=== PATIENT | female | born 1960 | race Caucasian/White ===

== ENCOUNTER 2023-01-19 12:14 | Emergency (ER) | payer MEDICAID, OTHER ==
[2023-01-19] MEDS ORDERED: KETOROLAC 30 MG/ML VIAL IM STA (13:03)
--- NOTE | 2023-01-19 13:03 | ED Physician Documentation ---
PD HPI HEADACHE - Stated complaint Stated Complaint: HEAD/NECK PX - Chief complaint Chief Complaint: Neuro - History obtained from History obtained from: Patient - Additional information Additional information: 62-year-old female presents with right sided headache. Headache is severe, in fact the most severe headache she has had, though not thunderclap or sudden onset in nature, has been gradually progressing over the course of last week. She states it feels like its on her scalp but there is a hand squeezing the right posterior scalp. She had no injuries to the area, and it feels better when she grabs her hair and pulled on it. She has not noted some Occasional floaters in her vision over the course of the last week as well as an episode 2 nights ago where she had a bright light in the periphery of the left visual field. She states this happened 1 time and did not recur she had no associated eye pain. She states no history of headaches or migraines But states she has had somewhat similar pain in the past with sinus infections though has no sinus symptoms at this time. She does induce significant stress in attention at this time, she wonders if the pain is related to tension from her neck where she tends to carry it. She in general would like to just return to [place] where she is visiting from, and she is due to go back tomorrow, and would like to follow-up with her primary doctor, but states the pain just was not going away and her father was concerned about her therefore she came in here. She has tried Tylenol for the pain without relief, no other treatment. She has no confusion or alteration in mental status, no speech changes, no extremity weakness or numbness, no ataxia, no fever or chills, no neck stiffness. Review of Systems Constitutional: reports: Reviewed and negative Eyes: reports: Other (. See HPI.) Ears: reports: Reviewed and negative Nose: reports: Reviewed and negative Throat: reports: Reviewed and negative Cardiac: reports: Reviewed and negative Respiratory: reports: Reviewed and negative GI: reports: Reviewed and negative : reports: Reviewed and negative Skin: reports: Reviewed and negative Musculoskeletal: reports: Reviewed and negative Neurologic: reports: Headache. denies: Generalized weakness, Focal weakness, Numbness, Difficulty speaking, Near syncope, Syncope, Seizure, Confused, Altered mental status, Unresponsive, Head injury, LOC, Reviewed and negative, Other Psychiatric: reports: Reviewed and negative Endocrine: reports: Reviewed and negative PD PAST MEDICAL HISTORY - Past Medical History Past Medical History: No - Present Medications Home Medications: Ambulatory Orders Medication Instructions Recorded Confirmed Diazepam [Valium] 5 mg PO Q12H PRN #2 tablet 01/19/23 - Allergies Allergies/Adverse Reactions: Allergies Allergy/AdvReac Type Severity Reaction Status Date / Time No Known Drug Allergies Allergy Verified 01/19/23 12:18 PD ED PE NORMAL - Vitals Vital signs reviewed: Yes - General General: Alert and oriented X 3, No acute distress, Well developed/nourished - HEENT HEENT: Atraumatic, PERRL, EOMI, Ears normal, Moist mucous membranes, Pharynx benign - Neck Neck: Supple, no meningeal sign, No bony TTP, No adenopathy, No JVD, C-Spine cleared by NEXUS criteria - Cardiac Cardiac: RRR, No murmur - Respiratory Respiratory: No respiratory distress, Clear bilaterally - Abdomen Abdomen: Normal bowel sounds, Soft, Non tender, Non distended - Derm Derm: Normal color, Warm and dry, No rash - Neuro Neuro: Alert and oriented X 3, No motor deficit, No sensory deficit, Normal speech Eye Opening: Spontaneous Motor: Obeys Commands Verbal: Oriented GCS Score: 15 - Psych Psych: Normal mood, Normal affect Results - Vitals Vitals: Vital Signs - 24 hr 01/19/23 01/19/23 01/19/23 12:18 14:10 16:05 Temperature 36.8 C Heart Rate 90 72 63 Respiratory 16 15 16 Rate Blood Pressure 120/90 H 120/70 131/86 H O2 Saturation 98 99 100 01/19/23 17:33 Temperature Heart Rate 66 Respiratory 15 Rate Blood Pressure 120/80 O2 Saturation 99 Oxygen O2 Source Room air - Labs Labs: Laboratory Tests 01/19/23 01/19/23 16:02 16:02 WBC 5.2 RBC 4.46 Hgb 12.6 Hct 40.1 MCV 89.9 MCH 28.3 MCHC 31.4 L RDW 14.9 Plt Count 174 MPV 9.7 Neut # (Auto) 3.0 Lymph # (Auto) 1.7 [place] # (Auto) 0.4 Eos # (Auto) 0.1 Baso # (Auto) 0.0 Absolute Nucleated RBC 0.00 Nucleated RBC % 0.0 Sodium 135 Potassium 4.2 Chloride 104 Carbon Dioxide 28 Anion Gap 3.0 L BUN 19 Creatinine 0.7 Estimated GFR (MDRD) 85 L Glucose 88 Calcium 9.4 - Rads (name of study) No standard instances Relevant Findings:: Final report received PD Medical Decision Making - ED course Complexity details: reviewed results, re-evaluated patient, considered differential, d/w patient ED course: 62-year-old female presented with a severe right-sided headache as described in HPI. The patient is comfortable appearing on physical exam but her physical exam is otherwise completely normal, she has stable vital signs, completely normal neurologic exam, no reproducible tenderness to palpation in the head. Given the severity of her headache and her head lack of headache history, I did obtain a CT head which was negative. We initially offered the patient various different treatment modalities including IM injections of pain or nausea medication, IV, oral medication. The patient elected for IM medication therefore she was given Toradol but had absolutely no relief with that, she was subsequently given 1 mg of IM Dilaudid with mild relief but given her ongoing headache and the severity, was concern for possible aneurysm or other acute finding therefore we did proceed with a CTA which was also negative. The patient was subsequently given some diazepam for possible tension type issue and had complete resolution of her headache and left neck pain. It therefore suggests that this is likely a tension type headache likely related to muscle tightness and tension in the right trapezius. The patient plans to return to her home tomorrow in [place] and has requested a short course of muscle laxer as needed until she is able to get into see the PCP therefore I have prescribed her 5 mg of p.o. diazepam, total of 2 tablets. She was advised on the potential side effects of this medication and not to drive or operate machinery While using this medication. Of note, I did consider the possibility of a small SAH that would not be seen on imaging and did offer lumbar puncture for this very small chance that this was the case and the patient declined stating that she would follow-up with her primary doctor. I do think this is appropriate Given the duration of her symptoms thus far and then a complete resolution with the treatment provided. Departure - Departure Disposition: 01 Home, Self Care Clinical Impression: Tension headache Condition: Good Instructions: ED Headache Tension Prescriptions: Diazepam [Valium] 5 mg PO Q12H PRN #2 tablet PRN Reason: Spasms Comments: Please continue follow up with your primary doctor when you return home to [place]. Your labs and CT head and CT angio were normal here. Forms: PCP List Discharge Date/Time: 01/19/23 17:33
--- NOTE | 2023-01-19 13:52 | CT Report ---
PROCEDURE: HEAD WO INDICATIONS: new, severe headache right, w/ blurry vision TECHNIQUE: Noncontrast 4.5 mm thick angled axial sections acquired from the foramen magnum to the vertex. For r adiation dose reduction, the following was used: automated exposure control, adjustment of mA and/or kV according to patient size. COMPARISON: None. FINDINGS: Image quality: Excellent. CSF spaces: Basal cisterns are patent. No extra-axial fluid collections. Ventricles are normal in size and shape. Brain: No midline shift. No intracranial masses or hemorrhage. Garnica-white matter interface is norm al. Skull and face: Calvarium and visualized facial bones are intact, without suspicious lesions. Sinuses: Visualized sinuses and mastoids are clear. IMPRESSION: No acute intracranial pathology Reviewed by: Moises Harding MD on 01/19/2023 1:51 PM PDT Approved by: Moises Harding MD on 01/19/2023 1:51 PM PDT Station ID: [id number]
[2023-01-19] MEDS ORDERED: HYDROmorphone 1 MG/ML CARPUJECT IM STA (14:12)
[2023-01-19] MEDS ORDERED: diazePAM INJ 5 MG/ML SYRINGE IVP STA (15:17)
[2023-01-19 16:07] LABS: BASOPHILS % (AUTO) 0.8 %; EOSINOPHILS # (AUTO) 0.1 10^3/uL (0.0-0.7); EOSINOPHILS % (AUTO) 2.7 %; HCT - HEMATOCRIT 40.1 % (37.0-47.0); HGB - HEMOGLOBIN 12.6 g/dL (12.0-16.0); LYMPHOCYTES # (AUTO) 1.7 10^3/uL (1.5-3.5); LYMPHOCYTES % (AUTO) 32.3 %; MEAN CORPUSCULAR HEMOGLOBIN 28.3 pg (27.0-31.0); MEAN CORPUSCULAR HGB CONC 31.4 g/dL (32.0-36.0); MEAN CORPUSCULAR VOLUME 89.9 fL (81.0-99.0); MEAN PLATELET VOLUME 9.7 fL (7.9-10.8); MONOCYTES # (AUTO) 0.4 10^3/uL (0.0-1.0); MONOCYTES % (AUTO) 7.1 %; NEUTROPHILS % (AUTO) 56.9 %; PLT - PLATELET COUNT 174 10^3/uL (130-450); RED BLOOD COUNT 4.46 10^6/uL (4.20-5.40); RED CELL DISTRIBUTION WIDTH 14.9 % (12.0-15.0); WHITE BLOOD COUNT 5.2 x10^3/uL (4.8-10.8)
[2023-01-19 16:47] LABS: CALCIUM 9.4 mg/dL (8.5-10.3); CREATININE 0.7 mg/dL (0.6-1.3); POTASSIUM 4.2 mmol/L (3.5-4.5)
[2023-01-19] MEDS ORDERED: iohexoL-300 100 ML VIAL IVP ONE (16:59)
--- NOTE | 2023-01-19 17:15 | CT Report ---
PROCEDURE: CT Angio Head W/WO INDICATIONS: "worst headache of life." CONTRAST: 80mL Omni 300 TECHNIQUE: Precontrast 4.5 mm thick angled axial sections acquired from the foramen magnum to the vertex. Afte r the administration of intravenous contrast, 1 mm thick sections acquired through the [place] of [place] is. Postcontrast 4.5 mm thick sections then re-acquired from the foramen magnum to the vertex. 3-di mensional dgenooh-hkfmvgggi-rqpvanlpkg (MIP) and/or volume rendering reformats were acquired of the c entral intracranial vasculature. For radiation dose reduction, the following was used: automated ex posure control, adjustment of mA and/or kV according to patient size. COMPARISON: CT head from earlier same day FINDINGS: Image quality: Excellent. Anterior circulation: Intracranial internal carotid arteries are normal in size and flow. The flow within the paired anterior cerebral arteries is normal and symmetric. The flow within the middle cer ebral arteries is normal and symmetric. The anterior communicating artery is seen. No aneurysms are seen. Posterior circulation: Visualized portions of the vertebral arteries demonstrate normal caliber, and join to form a normal appearing basilar artery. Flow within the posterior cerebral arteries is norm al and symmetric. No aneurysms are seen. CSF spaces: Ventricles are normal in size and shape. Basal cisterns are patent. No extra-axial flu id collections. Brain: No midline shift. No intracranial bleeds or masses. Garnica-white matter interface appears int act. Skull and face: Calvarium and facial bones appear intact, without suspicious lesions. Sinuses: Visualized sinuses and mastoids are clear. IMPRESSION: Negative CT angiogram of the intracranial arterial vasculature. No evidence for high-grade stenosis, occlusion, or aneurysm. Reviewed by: Moises Harding MD on 01/19/2023 5:14 PM PDT Approved by: Moises Harding MD on 01/19/2023 5:14 PM PDT Station ID: [id number]
[2023-01-19 17:37] VITALS: BP 120/80; O2SAT 99
== END 2023-01-19 17:33 | disposition home or self-care (01) ==
LOC: ED 12:14
DX: G44.209 Tension-type headache, unspecified, not intractable (principal)
CPT/HCPCS: 36415; 70450; 70496; 80048; 85025; 96372; 96374; 99283; 99284; J1170; Q9967